=== PATIENT | female | born 1990 | race Two or more races ===

== ENCOUNTER 2024-04-08 16:21 | Emergency (ER) | payer OTHER, MEDICAID ==
[~2024-04-08] VITALS: Ht 170.2 cm; Wt 113.1 kg
[2024-04-08] MEDS ORDERED: ZOFR4T PO (19:31)
[2024-04-08] MEDS ORDERED: SUMA50TA2 PO (19:31)
[2024-04-08 19:35] VITALS: BP 177/87; PULSE 70; RESP 16; TEMP 98.4; O2SAT 99
[2024-04-08] MEDS: ONDANSETRON ODT 4 MG TAB PO ONE (19:48)
[2024-04-08] MEDS: SUMAtriptan SUCCINATE 6 MG/0.5 ML VL SC ONE (19:49)
== END 2024-04-08 20:01 | disposition home or self-care (01) ==
LOC: ER 16:21
DX: G43.909 Migraine, unspecified, not intractable, without status migrainosus (principal); F17.210 Nicotine dependence, cigarettes, uncomplicated
CPT/HCPCS: 74176; 96372; 99285; J3030; Q0162; 82962